=== PATIENT | male | born 1940 | race Caucasian/White ===

== ENCOUNTER → 2018-06-27 | Outpatient (CLI) | payer MEDICARE | END | disposition home or self-care (01) | LOC: SHCH 11:25 | PROVIDERS: ATTEND Internal Medicine Cardiovascular Disease | DX: I48.0 Paroxysmal atrial fibrillation (principal) | CPT/HCPCS: 93306 ==

== ENCOUNTER → 2018-07-31 | Outpatient (CLI) | payer MEDICARE ==
[~2018-07-31] VITALS: Ht 167.6 cm; Wt 95.7 kg
[~2018-07-31] MED LIST: REGADENOSON 0.4 MG/5 ML PF SYG IVP SCH
== END | disposition home or self-care (01) ==
LOC: SHCH 08:44
PROVIDERS: ATTEND Internal Medicine Cardiovascular Disease
DX: I10 Essential (primary) hypertension (principal); I51.89 Other ill-defined heart diseases
CPT/HCPCS: 78452; 93017; 96374; A9500 ×2; J2785

== ENCOUNTER → 2019-01-08 | Outpatient (CLI) | payer MEDICARE | END | disposition home or self-care (01) | LOC: RAH 11:25 | PROVIDERS: ATTEND Internal Medicine | DX: M17.11 Unilateral primary osteoarthritis, right knee (principal) | CPT/HCPCS: 73562 ==

== ENCOUNTER 2019-04-09 06:00 | Observation (INO) | payer MEDICARE ==
[2019-04-08 15:04] LABS: HEMATOCRIT 43.8 % (42-54); MEAN CORPUSCULAR VOLUME 91.3 fL (79-99); PLATELET COUNT (AUTO) 217 K/uL (130-400); RED CELL DISTRIBUTION WIDTH 12.1 % (11.0-15.5); WHITE BLOOD COUNT (AUTO) 6.5 K/uL (4.8-10.8)
[2019-04-08 15:12] LABS: INR 1.02 (0.85-1.15); PARTIAL THROMBOPLASTIN TIME 26.3 SEC (26.3-35.5); PROTHROMBIN TIME 10.7 SEC (9.6-11.6)
[2019-04-08 15:33] VITALS: BP 175/80
[2019-04-08 15:57] LABS: APPEARANCE,URINE Clear (CLEAR); BILIRUBIN,URINE Negative (NEGATIVE); COLOR,URINE Dark Yellow (YELLOW); GLUCOSE, URINE (UA) Negative (NEGATIVE); KETONES,URINE Trace mg/dL (NEGATIVE); LEUKOCYTE ESTERASE ,URINE Negative (NEGATIVE); NITRATE,URINE Negative (NEGATIVE); OCCULT BLOOD,URINE Negative (NEGATIVE); PH,URINE 5.5 (5.0-8.0); PROTEIN,URINE Negative (NEGATIVE)
[2019-04-08 16:05] LABS: BACTERIA,URINE Few /HPF (None Seen); MUCUS,URINE Few LPF (None Seen); RBC,URINE 0-1 /HPF (0-1); SQUAMOUS EPITHELIAL CELL,UR 0-2 /HPF (0-2)
[~2019-04-09] VITALS: Ht 175.3 cm; Wt 99.8 kg
[2019-04-09] VITALS (25 sets, daily range): BP systolic 82–225; BP diastolic 45–102
[~2019-04-09 06:00] MED LIST changes: +ASPI-1197 PO; +CINN500C PO; +GLIM4TAB36 PO; +LACTATED RINGERS 1000ML 1,000 ML IV SCH; +LISI-617 PO; +METF-444 PO; +METOPROLOL; +MULT-1289 PO; +OMEG-125 PO; -REGADENOSON 0.4 MG/5 ML PF SYG IVP SCH; +SIMV40TA59 PO; +TAMS-1 PO
[2019-04-09] MEDS: CEFAZOLIN SODIUM 1 GM VIAL IVP SCH ×4 (06:00→20:25)
[2019-04-09] MEDS ORDERED: SODIUM CHLORIDE 0.9% 1000ML 1,000 ML IV ONE (07:10)
[2019-04-09] MEDS ORDERED: MIDAZOLAM HCL 1 MG/ML 2ML VIAL ONE (07:34)
[2019-04-09] MEDS ORDERED: LIDOCAINE PF 2% 5ML ABBOJECT ONE (07:34)
[2019-04-09] MEDS ORDERED: DEXAMETHASONE SOD PHOSPHATE 10MG/ML 1ML VIAL ONE (07:34)
[2019-04-09] MEDS ORDERED: FENTANYL CITRATE PF 50 MCG/1 ML 2ML VIAL ONE (07:35)
[2019-04-09] MEDS ORDERED: PROPOFOL 10 MG/ML 20ML VIAL IV ONE (07:35)
[2019-04-09] MEDS ORDERED: ONDANSETRON HCL 4 MG/2 ML VIAL ONE (07:35)
[2019-04-09] MEDS ORDERED: ROCURONIUM 10MG/1ML SYR 10 MG/ML ML ONE (07:38)
[2019-04-09] MEDS ORDERED: AMINOCAPROIC ACID 250 MG/ML 20 ML VIAL IV ONE ×2 (08:55→09:00)
[2019-04-09] MEDS ORDERED: NEOSTIGMINE 5MG/5ML SYR IV ONE (09:01)
[2019-04-09] MEDS ORDERED: GLYCOPYRROLATE 1 MG/5 ML SYRINGE ONE (09:01)
[2019-04-09] MEDS ORDERED: HYDRALAZINE HCL 20 MG/ML VIAL ONE (09:29)
[2019-04-09] MEDS ORDERED: MEPERIDINE-PF 25 MG/ML SYG ONE (09:37)
[2019-04-09] MEDS ORDERED: LABETALOL 20 MG/4 ML DISP.SYRIN IV ONE (09:50)
[2019-04-09 09:57] LABS: HEMATOCRIT 44.6 % (42-54); MEAN CORPUSCULAR HEMOGLOBIN 30.8 pg (27.0-33.0); MEAN CORPUSCULAR HGB CONC 33.9 g/dL (32.0-36.0); PLATELET COUNT (AUTO) 171 K/uL (130-400); RED CELL DISTRIBUTION WIDTH 12.2 % (11.0-15.5); WHITE BLOOD COUNT (AUTO) 9.9 K/uL (4.8-10.8)
[2019-04-09 10:10] LABS: CREATININE 0.7 mg/dL (0.5-1.5); POTASSIUM 5.1 mmol/L (3.5-5.1)
--- NOTE | 2019-04-09 10:25 | NUR ---
ADMISSION PATIENT TRANSFERRED FROM PACU S/P TURP. PATIENT HAS A 3-WAY 22FR JIMENEZ CONNECTED TO CBI, OUTPUT APPEARS LIGHT YELLOW. PATIENT IS DROWSY BUT AROUSABLE. PATIENT DENIES PAIN AT THIS TIME. IV TO RIGHT HAND 20G INFUSING AMICAR DRIP AT 100ML/HR.
[2019-04-09] MEDS ORDERED: MEPERIDINE-PF 50 MG/ML SYG IM PRN (12:00)
[2019-04-09] MEDS ORDERED: ONDANSETRON HCL 4 MG/2 ML VIAL IVP PRN (12:00)
[2019-04-09] MEDS ORDERED: ACETAMINOPHEN-CODEINE 300/30MG TAB PO PRN (12:00)
[2019-04-09] MEDS: SODIUM CHLORIDE 0.9% 1000ML 1,000 ML IV SCH ×2 (12:00→22:13)
[2019-04-09] MEDS ORDERED: OXYBUTYNIN CHLORIDE 5 MG TABLET PO SCH (12:00)
[2019-04-09] MEDS ORDERED: ACETAMINOPHEN 325 MG TAB PO PRN (12:00)
[2019-04-09] MEDS ORDERED: METO25TA6 PO (12:18)
[2019-04-09] MEDS ORDERED: METO-408 PO (12:21)
[2019-04-09] MEDS ORDERED: SODIUM CHLORIDE 0.9% 1000ML 1,000 ML IV SCH (12:30)
[2019-04-09] MEDS ORDERED: MEPERIDINE-PF 25 MG/ML SYG IM PRN (12:45)
[2019-04-09] MEDS: ASPIRIN 81MG TAB.CHEW PO SCH (20:26)
[2019-04-09] MEDS: OXYBUTYNIN CHLORIDE 5 MG TABLET PO SCH (20:26)
[2019-04-09] MEDS: LISINOPRIL 20 MG TABLET PO SCH (20:26)
[2019-04-09] MEDS: TAMSULOSIN HCL 0.4 MG CAP.ER.24H PO SCH (20:42)
--- NOTE | 2019-04-10 02:01 | NUR ---
[address] KIRK draining clear yellow output,CBI with no problem.Pt seen manipulting his catheter,small amount of bleeding noted around penis,tim care rendered per .
--- NOTE | 2019-04-10 02:05 | NUR ---
LEG TRACTION 3 WAY JIMENEZ TO LEG TRACTION DRAINING CLEAR YELLOW OUTPUT.
--- NOTE | 2019-04-10 02:30 | NUR ---
UP ON CHAIR Pt assisted to mynor palafox well.
--- NOTE | 2019-04-10 03:15 | NUR ---
NAUSEA Pt c/o heartburn and nausea,medicated with Zofran Iv.
[2019-04-10 03:33] VITALS: BP 125/65
--- NOTE | 2019-04-10 04:15 | NUR ---
MED EFFECT Pt sleeping this time.No distress noted.3 way kirk cath. connected to Cbi remains with clear yellow output. Licha well.
[2019-04-10] MEDS: CEFAZOLIN SODIUM 1 GM VIAL IVP SCH ×3 (04:28→20:45)
[2019-04-10 05:10] LABS: BASOPHILS % (AUTO) 0.1 % (0.0-5.0); HEMATOCRIT 39.2 % (42-54); LYMPHOCYTES % (AUTO) 8.5 % (21.0-51.0); MEAN CORPUSCULAR HEMOGLOBIN 30.1 pg (27.0-33.0); MEAN CORPUSCULAR HGB CONC 33.7 g/dL (32.0-36.0); MEAN CORPUSCULAR VOLUME 89.3 fL (79-99); MONOCYTES % (AUTO) 8.2 % (3.0-13.0); NEUTROPHILS % (AUTO) 82.8 % (40.0-77.0); PLATELET COUNT (AUTO) 186 K/uL (130-400); RED BLOOD CELL COUNT(AUTO) 4.39 MIL/uL (4.50-6.20); RED CELL DISTRIBUTION WIDTH 11.9 % (11.0-15.5); WHITE BLOOD COUNT (AUTO) 12.6 K/uL (4.8-10.8)
[2019-04-10 05:27] LABS: CREATININE 0.9 mg/dL (0.5-1.5); POTASSIUM 4.2 mmol/L (3.5-5.1)
--- NOTE | 2019-04-10 08:00 | NUR ---
AM SHIFT ASSESSMENT:CBI IN PLACE, DRAINING CLEAR YELLOW URINE. DENIES ANY DISCOMFORT AT HIS TIME
[2019-04-10 08:32] VITALS: BP 129/71
[2019-04-10] MEDS: FISH OIL 1000 MG/CAP PO SCH (09:57)
[2019-04-10] MEDS: OXYBUTYNIN CHLORIDE 5 MG TABLET PO SCH ×2 (09:57→20:45)
[2019-04-10] MEDS: MULTIVITAMIN WITH MINERALS TABLET PO SCH (09:57)
[2019-04-10] MEDS: METOPROLOL SUCCINATE 50 MG TAB.SR.24H PO SCH (09:58)
--- NOTE | 2019-04-10 10:00 | NUR ---
WALKING IN HALLWAY WITH AT SIDE
[2019-04-10 11:02] VITALS: BP 135/70
--- NOTE | 2019-04-10 12:35 | NUR ---
CHART REVIEWED [facility] GENERATED
--- NOTE | 2019-04-10 13:44 | NUR ---
CBI STOPPED, KEEP JIMENEZ, CONVERT IVF TO SALINE LOCK. PLAN TO DC IN AM.
--- NOTE | 2019-04-10 13:44 | NUR ---
DR. RUSHING IN TO SEE PT. ORDERS GIVEN AND ENTERED.
[2019-04-10 15:47] VITALS: BP 146/69
--- NOTE | 2019-04-10 15:57 | NUR ---
1059 had pt sign JAQUEZ Letter,faxed to [phone] and placed in chart under consent tab
[2019-04-10] MEDS ORDERED: SODIUM CHLORIDE 0.9% 10 ML VIAL IVP PRN (16:15)
[2019-04-10 19:39] VITALS: BP 167/84
--- NOTE | 2019-04-10 20:30 | NUR ---
3 WAY JIMENEZ CONNECTED TO BEDSIDE DRAINAGE-ON LEG TRACTION.NO BLEEDING NOTED. Addendum: 04/11/19 at 0148 by JULIA FAJARDO RN RN Amended: Links added.
[2019-04-10] MEDS: TAMSULOSIN HCL 0.4 MG CAP.ER.24H PO SCH (20:45)
[2019-04-10] MEDS: ASPIRIN 81MG TAB.CHEW PO SCH (20:45)
[2019-04-10] MEDS: LISINOPRIL 20 MG TABLET PO SCH (20:45)
[2019-04-11] VITALS: BP 149/78
[2019-04-11 04:00] VITALS: BP 148/73
[2019-04-11] MEDS: CEFAZOLIN SODIUM 1 GM VIAL IVP SCH ×2 (04:13→13:33)
[2019-04-11 07:44] LABS: HEMATOCRIT 39.5 % (42-54); MEAN CORPUSCULAR HEMOGLOBIN 31.1 pg (27.0-33.0); MEAN CORPUSCULAR HGB CONC 34.2 g/dL (32.0-36.0); PLATELET COUNT (AUTO) 160 K/uL (130-400); RED BLOOD CELL COUNT(AUTO) 4.34 MIL/uL (4.50-6.20); RED CELL DISTRIBUTION WIDTH 12.3 % (11.0-15.5); WHITE BLOOD COUNT (AUTO) 8.3 K/uL (4.8-10.8)
[2019-04-11 08:00] VITALS: BP 177/88
[2019-04-11 08:00] LABS: CREATININE 0.8 mg/dL (0.5-1.5); POTASSIUM 3.9 mmol/L (3.5-5.1)
--- NOTE | 2019-04-11 08:10 | NUR ---
CALL TO MD OFFICE SPOKE TO NURSE, Advised staff of 2mn's for monitoring of urine-will MD be discharging today? Advised that MD will be rounding around noon, will ask him then
[2019-04-11] MEDS ORDERED: ENOXAPARIN SODIUM 30 MG/0.3 ML SQ SCH (09:00)
[2019-04-11] MEDS: METOPROLOL SUCCINATE 50 MG TAB.SR.24H PO SCH (09:11)
[2019-04-11] MEDS: OXYBUTYNIN CHLORIDE 5 MG TABLET PO SCH (09:11)
[2019-04-11] MEDS: FISH OIL 1000 MG/CAP PO SCH (09:11)
[2019-04-11] MEDS: MULTIVITAMIN WITH MINERALS TABLET PO SCH (09:11)
[2019-04-11 11:48] VITALS: BP 147/77
--- NOTE | 2019-04-11 14:29 | NUR ---
DR. RUSHING N TO SEE PT. DISCHARGE ORDERS ENTERED. RX. GIVEN. WILL GO HOME WITH JIMENEZ CATH. IN PLACE . WILL FOLLOW UP IN OFFICE IN 1 WEEK. LEG BAG APPLIED AND WILL PROVIDE BEDSIDE DRAINAGE BAG FOR NIGHT USE.
--- NOTE | 2019-04-11 16:22 | NUR ---
DISCHARGED NOW USING TEACH BACK. LEG BAG APPLIED AND BEDSIDE DRAINAGE BAG GIVEN FOR HOME USE. INST. ON CARE GIVEN SALINE LOCK REMOVED. RX. GIVEN FOR AUGMENTIN AND AMICAR, ALSO HAS DITROPAN AND IS TO CONTINUE ALL HOME MEDS. BEFORE. WILL SEE IN 1 WEEK FOR REMOVAL OF JIMENEZ. UNABLE TO GET APPT. THERE WAS NO ANSWER AT OFFICE. PHONE NUMBER# AND WILL CALL IN AM.
== END 2019-04-11 16:15 | disposition home or self-care (01) ==
LOC: DAH 06:00 → DAHIP 06:01 → DAH 06:01 → 3BH 10:51
PROVIDERS: ADMIT Urology; ATTEND Urology
DX: N40.1 Benign prostatic hyperplasia with lower urinary tract symptoms (principal); E78.5 Hyperlipidemia, unspecified; E11.9 Type 2 diabetes mellitus without complications; I51.9 Heart disease, unspecified; Z90.49 Acquired absence of other specified parts of digestive tract; Z90.79 Acquired absence of other genital organ(s); Z79.899 Other long term (current) drug therapy
CPT/HCPCS: 36415 ×4; 52601; 71046; 80048 ×3; 81001; 82948 ×9; 85025; 85027 ×3; 85610; 85730; 87088; 88305; 96372 ×2; 96374; 96375; 96376 ×3; A4213; A4215; A4221; A4222; A4223; A4344; A4346; A4600; A4663; A4930; A5113; A6260; G0378 ×56; J0360; J0690 ×8; J1100; J1650; J2001; J2175 ×2; J2250; J2405 ×2; J2704; J2710; J3010; J3490 ×3; J7030 ×2